=== PATIENT | male | born 1995 ===

== ENCOUNTER 2023-02-02 22:38 | Emergency (ER) | payer OTHER ==
[~2023-02-02] VITALS: Ht 195.6 cm; Wt 115.7 kg
[~2023-02-02 22:38] MED LIST: CELEBREX200 MG PO; NORTRIPTYLINE H10 MG PO
[2023-02-03] MEDS ORDERED: METHOCARBAMOL500 MG PO (00:03)
[2023-02-03 00:26] VITALS: BP 141/90
--- OUTSIDE RECORDS SUMMARY | 2023-02-03 00:48 | XMS ---
PreManage Notification: NEREYDA BEDOYA [employer] Events No recent Security Events currently on file CRITERIA MET - [facility] - 2 Visits in 30 Days CARE PROVIDERS There are no care providers on record at this time. Becky has no Care Guidelines for this patient. Gail VISIT COUNT (12 MO.) 1 LUCIANO [employer] TOTAL 2 NOTE: Visits indicate total known visits. ED/C VISIT TRACKING (12 MO.) 02/02/2023 22:39 [place] TYPE: Emergency COMPLAINT: - JAW PAIN 02/01/2023 14:16 [facility] [place] TYPE: Emergency COMPLAINT: - LEFT SIDE MOUTH PAIN INPATIENT VISIT TRACKING (12 MO.) No inpatient visits to display in this time frame [email or web address]
== END 2023-02-03 00:27 | disposition home or self-care (01) ==
LOC: ED 22:38
DX: M26.602 Left temporomandibular joint disorder, unspecified (principal); Z88.5 Allergy status to narcotic agent
CPT/HCPCS: A9270